=== PATIENT | female | born 1990 | race Caucasian/White ===

== ENCOUNTER 2019-07-21 14:09 | Emergency (ER) | payer OTHER ==
--- NOTE | 2019-07-21 14:39 | ER Document Report ---
ED Medical Screen (RME) - General Chief Complaint: Vaginal Pain Stated Complaint: VAGINAL PAIN Time Seen by Provider: 07/21/19 14:37 Mode of Arrival: Ambulatory Information source: Patient Notes: 28-year-old female presented to ED for complaint of vaginal pain. She went to have a bowel movement and it feels like there is an organ coming out of her vagina. She just delivered a baby 4 days ago at home. She states after the delivery the EMS came and took her to the hospital. She is alert oriented respirations regular nonlabored. She states it is very difficult to sit or walk due to the pain. She states there is nothing hanging out at this time but it is in the middle of her vagina she states when her legs are open you can see that there is something coming out. I have greeted and performed a rapid initial assessment of this patient. A comprehensive ED assessment and evaluation of the patient, analysis of test results and completion of medical decision making process will be conducted by an additional ED providers. Physical Exam - Vital signs Vitals: Temp Pulse Resp BP Pulse Ox 98 F 88 18 115/64 99 07/21/19 14:15 07/21/19 14:15 07/21/19 14:15 07/21/19 14:15 07/21/19 14:15 Course - Vital Signs Vital signs: Temp Pulse Resp BP Pulse Ox 98 F 88 18 115/64 99 07/21/19 14:15 07/21/19 14:15 07/21/19 14:15 07/21/19 14:15 07/21/19 14:15
--- NOTE | 2019-07-21 15:48 | ER Document Report ---
ED GI/ - General Chief Complaint: Vaginal Pain Stated Complaint: VAGINAL PAIN Time Seen by Provider: 07/21/19 14:37 Mode of Arrival: Ambulatory Information source: Patient Notes: Mrs. Newman is a 28-year-old otherwise healthy female G3, P3 now 3 days from delivering a healthy baby girl at home presenting to the ED for pelvic pain. Patient states that she was having a bowel movement and straining quite hard when she felt as if something was popping out of her vagina. She states that this mass or thing has since decreased. She endorses ongoing normal vaginal bleeding . She states that after delivering the baby at home, her called 911, they were brought to the hospital at which point both mom and baby were evaluated. Both were found to be otherwise healthy and normal and discharged very next day. Mom states that she has been quite constipated. She has been using vitamins, stool softener, and Tylenol Motrin as needed. She also indicates that she is quite tender and swollen below the recent . Patient denies any fevers, chills, abdominal pain, nausea vomiting or diarrhea. She denies any cough or shortness of breath. She does endorse some burning with urination however she states that when the urine hits her external vulva as she does have a small laceration. She denies any increased urinary frequency. TRAVEL OUTSIDE OF THE [place] IN LAST 30 DAYS: No - Related Data Home Medications: . ibuprofen prn Past Medical History - General Information source: Patient - Social History Smoking Status: Unknown if Ever Smoked Family History: None Patient has suicidal ideation: No Patient has homicidal ideation: No Review of Systems - Review of Systems Constitutional: No symptoms reported EENT: No symptoms reported Cardiovascular: No symptoms reported Respiratory: No symptoms reported Gastrointestinal: No symptoms reported Genitourinary: See HPI, Pain. denies: Discharge, Frequency, Incontinence, Urgency, Retention Female Genitourinary: Vaginal bleeding. denies: Vaginal discharge, Vaginal odor Musculoskeletal: No symptoms reported Skin: No symptoms reported Hematologic/Lymphatic: No symptoms reported Neurological/Psychological: No symptoms reported Physical Exam - Vital signs Vitals: Temp Pulse Resp BP Pulse Ox 98 F 88 18 115/64 99 07/21/19 14:15 07/21/19 14:15 07/21/19 14:15 07/21/19 14:15 07/21/19 14:15 Interpretation: Normal - General General appearance: Appears well, Alert - HEENT Head: Normocephalic, Atraumatic Eyes: Normal Pupils: PERRL - Respiratory Respiratory status: No respiratory distress Chest status: Nontender Breath sounds: Normal Chest palpation: Normal - Cardiovascular Rhythm: Regular Heart sounds: Normal auscultation Murmur: No - Abdominal Inspection: Normal Distension: No distension Bowel sounds: Normal Tenderness: Nontender Organomegaly: No organomegaly - Genitourinary External exam: Other - Swollen external vulva Speculum exam: Other - Partially prolapsed uterus visualized in vaginal vault. Reduced easily with lubrication and bimanual examination. Vaginal bleeding: Mild Bimanuel exam: Normal - Back Back: Normal, Nontender - Extremities General upper extremity: Normal inspection, Nontender, Normal color, Normal ROM, Normal temperature General lower extremity: Normal inspection, Nontender, Normal color, Normal ROM, Normal temperature, Normal weight bearing. No: Joce's sign - Neurological Neuro grossly intact: Yes Cognition: Normal Orientation: AAOx4 Lemitar Coma Scale Eye Opening: Spontaneous Charisse Coma Scale Verbal: Oriented Lemitar Coma Scale Motor: Obeys Commands Lemitar Coma Scale Total: 15 Speech: Normal Motor strength normal: LUE, RUE, LLE, RLE Sensory: Normal - Psychological Associated symptoms: Normal affect, Normal mood - Skin Skin Temperature: Warm Skin Moisture: Dry Skin Color: Normal Course - Re-evaluation Re-evalutation: 07/21/19 15:49 Patient is generally well-appearing and nontoxic. Initial vitals within normal limits. Patient just delivered baby 3 days ago and while straining extensively in the bathroom, she felt a mass protruding from her vagina. Upon examination. There is a partially reduced uterine prolapse within the vaginal vault. Easily reduced. Swollen external vulva however patient tolerated bimanual examination and speculum examination without issues. Ongoing small amount of vaginal bleeding without any foul-smelling discharge. No increased urinary frequency or dysuria to suggest UTI. Pelvic swabs were obtained as the patient is not complaining of any additional vaginal discharge. Patient recommended to start using MiraLAX in addition to her stool softener which is likely senna plus (small red round tablet). Patient instructed to follow-up with her courseware developer. She already has an appointment in the next 6 weeks. Patient instructed to add MiraLAX to her diet and increase her water intake to prevent constipation and therefore straining. Also instructed to perform Keagle ex ercises. Patient given return precautions. - Vital Signs Vital signs: Temp Pulse Resp BP Pulse Ox 98 F 88 18 115/64 99 07/21/19 14:15 07/21/19 14:15 07/21/19 14:15 07/21/19 14:15 07/21/19 14:15 Discharge - Discharge Clinical Impression: Uterine prolapse, Vaginal delivery Condition: Good Disposition: HOME, SELF-CARE Additional Instructions: It is important that you add MiraLAX in addition to your other stool softener. I would recommend that you use MiraLAX in conjunction with senna plus. Follow- up with your OB for this likely episode of uterine prolapse. I would also recommend that you perform Keagle exercises regularly throughout the day every day. Avoid straining when defecating.
[2019-07-21 16:02] VITALS: BP 113/68
== END 2019-07-21 16:02 | disposition home or self-care (01) ==
LOC: ER 14:09
DX: O90.89 Other complications of the puerperium, not elsewhere classified (principal); N81.4 Uterovaginal prolapse, unspecified; R10.2 Pelvic and perineal pain